=== PATIENT | male | born 1940 | race Caucasian/White ===

== ENCOUNTER 2016-12-31 11:31 | Inpatient (IN) | payer OTHER, MEDICARE ==
[~2016-12-31] VITALS: Ht 182.9 cm; Wt 84.4 kg
[2016-12-31 13:18] LABS: HEMATOCRIT 46.2 % (38.0-50.0); MCH 32.6 PG (29.0-34.0); MCHC 34.4 G/DL (30.0-36.0); MCV 94.7 FL (86-99); MEAN PLAT.VOLUME 9.5 uM^3 (9.0-12.4); PLATELET COUNT 292 K/uL (156-360); RBC DIS.WIDTH-CV 12.1 % (11.8-14.6); RBC DIS.WIDTH-SD 42.5 % (39-53); RED BLOOD COUNT 4.88 M/uL (4.00-5.50); WHITE BLOOD COUNT 10.5 K/uL (4.1-10.2)
[2016-12-31 13:22] LABS: CHLORIDE 101 mEq/L (99-109); POTASSIUM 3.8 mEq/L (3.7-5.4); SODIUM 139 mEq/L (136-147)
[2016-12-31 13:24] LABS: GLUCOSE 105 mg/dL (70-99)
[2016-12-31 13:25] LABS: ANION GAP 9 MEQ/L (2-14); D-DIMER ELISA 0.72 mg/L FEU (< 0.57)
[2016-12-31 13:26] LABS: TOTAL BILIRUBIN 0.7 mg/dL (0.0-1.0)
[2016-12-31 13:28] LABS: ALKALINE PHOSPHATASE 108 IU/L (3-129); GFR ESTIMATE (CALCULATED) > 59 mL/min/
[2016-12-31 13:29] LABS: UREA NITROGEN (BUN) 19 mg/dL (9-23)
[2016-12-31 13:35] LABS: TROP-I INTERPRETATION NEGATIVE; TROPONIN-I 0.02 ng/mL (0.0-0.30)
[2016-12-31] MEDS ORDERED: CLOPIDOGREL75 MG PO (16:06)
[2016-12-31] MEDS ORDERED: ASCORBIC ACID500 M3 PO (16:07)
[2016-12-31] MEDS ORDERED: ATORVASTATIN CA80 MG PO (16:07)
[2016-12-31] MEDS ORDERED: VITAMIN D31000 UNIT PO (16:07)
[2016-12-31] MEDS ORDERED: HYZAAR 50-121 TABLET PO (16:07)
[2016-12-31] MEDS ORDERED: CENTRUM SILVER1 EAC3 PO (16:07)
[2016-12-31 18:34] VITALS: BP 148/81
[2016-12-31 22:49] VITALS: BP 132/69
[2017-01-01 06:49] LABS: INTER. NORMALIZED RATIO 1.2; PROTHROMBIN TIME 11.9 (9.2-11.2); PTT 27.8 (25-32)
[2017-01-01 07:08] LABS: ANION GAP 6 MEQ/L (2-14); CHLORIDE 104 MEQ/L (99-109); GFR ESTIMATE (CALCULATED) > 59 mL/min/; GLUCOSE 93 mg/dL (70-99); POTASSIUM 3.8 MEQ/L (3.7-5.4); SAMPLE HEMOLYSIS CHECK 0; SAMPLE ICTERIC CHECK 0; SAMPLE LIPEMIA CHECK 0; SODIUM 140 MEQ/L (136-147); UREA NITROGEN (BUN) 19 mg/dL (9-23)
[2017-01-01 07:18] VITALS: BP 148/75
[2017-01-01 15:46] VITALS: BP 117/72
[2017-01-01 19:37] VITALS: BP 115/70
[2017-01-01 22:30] VITALS: BP 118/76
[2017-01-02] VITALS (7 sets, daily range): BP systolic 133–148; BP diastolic 68–83
[2017-01-02 06:58] LABS: ANION GAP 5 MEQ/L (2-14); CHLORIDE 105 MEQ/L (99-109); GFR ESTIMATE (CALCULATED) > 59 mL/min/; GLUCOSE 82 mg/dL (70-99); MAGNESIUM 1.5 mg/dl (1.3-2.7); POTASSIUM 3.6 MEQ/L (3.7-5.4); SAMPLE HEMOLYSIS CHECK 0; SAMPLE ICTERIC CHECK 0; SAMPLE LIPEMIA CHECK 0; SODIUM 140 MEQ/L (136-147); UREA NITROGEN (BUN) 17 mg/dL (9-23)
[2017-01-02 06:59] LABS: EOSINOPHIL (%) 0.9 % (0-5); EOSINOPHIL COUNT 0.1 K/uL (0-0.3); HEMATOCRIT 38.4 % (38.0-50.0); IMMATURE GRANULOCYTE (%) 0.5 % (0.0-0.7); IMMATURE GRANULOCYTE COUNT 0.1 K/uL; INSTRUMENT ABS NEUTROPHIL CT 7.9 K/uL; LYMPHOCYTE COUNT 1.5 K/uL (1.0-2.8); MCH 32.9 PG (29.0-34.0); MCHC 33.9 G/DL (30.0-36.0); MCV 97.2 FL (86-99); MEAN PLAT.VOLUME 9.6 uM^3 (9.0-12.4); MONOCYTE (%) 12.1 % (3-12); MONOCYTE COUNT 1.3 K/uL (0-0.8); NEUTROPHIL (%) 72.8 % (45-76); NEUTROPHIL COUNT 7.9 K/uL (1.8-6.4); PLATELET COUNT 207 K/uL (156-360); RBC DIS.WIDTH-CV 12.1 % (11.8-14.6); RBC DIS.WIDTH-SD 43.6 % (39-53); RED BLOOD COUNT 3.95 M/uL (4.00-5.50); WHITE BLOOD COUNT 10.9 K/uL (4.1-10.2)
[2017-01-03 03:40] VITALS: BP 130/82
[2017-01-03 06:43] LABS: EOSINOPHIL (%) 0.6 % (0-5); EOSINOPHIL COUNT 0.1 K/uL (0-0.3); IMMATURE GRANULOCYTE (%) 0.5 % (0.0-0.7); IMMATURE GRANULOCYTE COUNT 0.1 K/uL; INSTRUMENT ABS NEUTROPHIL CT 7.4 K/uL; LYMPHOCYTE COUNT 1.3 K/uL (1.0-2.8); MCH 32.3 PG (29.0-34.0); MCHC 33.3 G/DL (30.0-36.0); MEAN PLAT.VOLUME 9.6 uM^3 (9.0-12.4); MONOCYTE (%) 11.3 % (3-12); MONOCYTE COUNT 1.1 K/uL (0-0.8); NEUTROPHIL (%) 74.1 % (45-76); NEUTROPHIL COUNT 7.4 K/uL (1.8-6.4); PLATELET COUNT 188 K/uL (156-360); RBC DIS.WIDTH-CV 12.3 % (11.8-14.6); RBC DIS.WIDTH-SD 43.8 % (39-53); RED BLOOD COUNT 3.71 M/uL (4.00-5.50)
[2017-01-03 07:01] VITALS: BP 150/71
[2017-01-03 07:11] LABS: ANION GAP 6 MEQ/L (2-14); CHLORIDE 110 MEQ/L (99-109); GFR ESTIMATE (CALCULATED) > 59 mL/min/; GLUCOSE 82 mg/dL (70-99); MAGNESIUM 1.5 mg/dl (1.3-2.7); POTASSIUM 3.8 MEQ/L (3.7-5.4); SAMPLE HEMOLYSIS CHECK 0; SAMPLE ICTERIC CHECK 0; SAMPLE LIPEMIA CHECK 0; SODIUM 141 MEQ/L (136-147); UREA NITROGEN (BUN) 17 mg/dL (9-23)
[2017-01-03 11:28] VITALS: BP 137/69
[2017-01-03 18:54] VITALS: BP 165/77
[2017-01-03 23:04] VITALS: BP 148/74
[2017-01-04 03:20] VITALS: BP 146/76
[2017-01-04 06:35] LABS: EOSINOPHIL (%) 0.5 % (0-5); EOSINOPHIL COUNT 0.1 K/uL (0-0.3); HEMATOCRIT 37.6 % (38.0-50.0); IMMATURE GRANULOCYTE (%) 0.5 % (0.0-0.7); IMMATURE GRANULOCYTE COUNT 0.1 K/uL; INSTRUMENT ABS NEUTROPHIL CT 6.8 K/uL; LYMPHOCYTE COUNT 1.4 K/uL (1.0-2.8); MCH 32.5 PG (29.0-34.0); MCHC 33.5 G/DL (30.0-36.0); MCV 96.9 FL (86-99); MEAN PLAT.VOLUME 9.4 uM^3 (9.0-12.4); MONOCYTE (%) 11.1 % (3-12); NEUTROPHIL (%) 72.7 % (45-76); NEUTROPHIL COUNT 6.8 K/uL (1.8-6.4); PLATELET COUNT 183 K/uL (156-360); RBC DIS.WIDTH-CV 12.2 % (11.8-14.6); RBC DIS.WIDTH-SD 43.8 % (39-53); RED BLOOD COUNT 3.88 M/uL (4.00-5.50); WHITE BLOOD COUNT 9.3 K/uL (4.1-10.2)
[2017-01-04 06:56] LABS: ANION GAP 5 MEQ/L (2-14); CHLORIDE 109 MEQ/L (99-109); GFR ESTIMATE (CALCULATED) > 59 mL/min/; GLUCOSE 84 mg/dL (70-99); MAGNESIUM 1.5 mg/dl (1.3-2.7); SAMPLE HEMOLYSIS CHECK 2; SAMPLE ICTERIC CHECK 0; SAMPLE LIPEMIA CHECK 0; SODIUM 140 MEQ/L (136-147); UREA NITROGEN (BUN) 16 mg/dL (9-23)
[2017-01-04 06:58] LABS: POTASSIUM 4.1 MEQ/L (3.7-5.4)
[2017-01-04 07:11] VITALS: BP 164/79
[2017-01-04 10:12] VITALS: BP 151/73
[2017-01-04 15:30] VITALS: BP 169/81
[2017-01-04 18:53] VITALS: BP 179/81
[2017-01-04 23:02] VITALS: BP 151/70
[2017-01-05 04:16] VITALS: BP 158/75
[2017-01-05 06:55] LABS: EOSINOPHIL (%) 0.7 % (0-5); EOSINOPHIL COUNT 0.1 K/uL (0-0.3); HEMATOCRIT 37.4 % (38.0-50.0); IMMATURE GRANULOCYTE (%) 0.3 % (0.0-0.7); INSTRUMENT ABS NEUTROPHIL CT 6.3 K/uL; LYMPHOCYTE COUNT 1.5 K/uL (1.0-2.8); MCH 32.3 PG (29.0-34.0); MCHC 33.2 G/DL (30.0-36.0); MCV 97.4 FL (86-99); MEAN PLAT.VOLUME 9.7 uM^3 (9.0-12.4); MONOCYTE (%) 11.7 % (3-12); MONOCYTE COUNT 1.1 K/uL (0-0.8); NEUTROPHIL (%) 70.7 % (45-76); NEUTROPHIL COUNT 6.3 K/uL (1.8-6.4); PLATELET COUNT 180 K/uL (156-360); RBC DIS.WIDTH-CV 12.4 % (11.8-14.6); RBC DIS.WIDTH-SD 44.4 % (39-53); RED BLOOD COUNT 3.84 M/uL (4.00-5.50); WHITE BLOOD COUNT 8.9 K/uL (4.1-10.2)
[2017-01-05 07:11] LABS: ANION GAP 6 MEQ/L (2-14); CHLORIDE 109 MEQ/L (99-109); GFR ESTIMATE (CALCULATED) > 59 mL/min/; GLUCOSE 73 mg/dL (70-99); MAGNESIUM 1.6 mg/dl (1.3-2.7); POTASSIUM 3.6 MEQ/L (3.7-5.4); SAMPLE HEMOLYSIS CHECK 0; SAMPLE ICTERIC CHECK 0; SAMPLE LIPEMIA CHECK 0; SODIUM 143 MEQ/L (136-147); UREA NITROGEN (BUN) 16 mg/dL (9-23)
[2017-01-05 07:32] VITALS: BP 147/83
[2017-01-05 11:41] VITALS: BP 168/77
[2017-01-05 16:01] VITALS: BP 146/82
[2017-01-05 19:11] VITALS: BP 163/79
[2017-01-05 22:37] VITALS: BP 177/87
[2017-01-06 07:34] VITALS: BP 169/80
[2017-01-06 11:16] VITALS: BP 175/84
[2017-01-06 15:28] VITALS: BP 148/88
[2017-01-06 19:30] VITALS: BP 162/83
[2017-01-06 23:46] VITALS: BP 140/69
[2017-01-07 04:27] VITALS: BP 151/71
[2017-01-07 08:20] VITALS: BP 151/80
[2017-01-07] MEDS ORDERED: AMOX TR-K CLV1 EAC3 PO (11:48)
[2017-01-07] MEDS ORDERED: PREDNISONE10 MG PO (11:49)
== END 2017-01-07 12:43 | disposition home or self-care (01) | DRG 189 ==
LOC: EME 11:31 → EDOF 15:45 → 5EAST 15:45
PROVIDERS: Hospitalist; Internal Medicine; Internal Medicine Hematology & Oncology; Physician Assistant
PROC: 0FB23ZX Excision of Left Lobe Liver, Percutaneous Approach, Diagnostic (ICD-10-PCS; principal; 2017-01-02)
DX: J96.01 Acute respiratory failure with hypoxia (principal); C78.01 Secondary malignant neoplasm of right lung; J44.1 Chronic obstructive pulmonary disease with (acute) exacerbation; C78.7 Secondary malignant neoplasm of liver and intrahepatic bile duct; C41.2 Malignant neoplasm of vertebral column; C34.90 Malignant neoplasm of unspecified part of unspecified bronchus or lung; E83.52 Hypercalcemia; I10 Essential (primary) hypertension; E78.5 Hyperlipidemia, unspecified; F17.210 Nicotine dependence, cigarettes, uncomplicated
CPT/HCPCS: 71020; 71275; 74176; 77012; 80048; 80053; 83605; 83735; 83880; 84484; 85025; 85027; 85379; 85610; 85730; 87040; 88305; 88341 TC; 88342 TC; 93005; 94640; 94760; 94799; 99202; 99281; 99285; J0456; J0696; J1200; J1650; J2430; J3010; J7030; J7040; J7050; J7512; S0028